=== PATIENT | male | born 1990 | race Hispanic/Latino ===

== ENCOUNTER 2025-03-30 14:17 | Emergency (ER) | payer OTHER ==
[~2025-03-30] VITALS: Ht 198.1 cm; Wt 113.4 kg
[2025-03-30] MEDS: CYCLOBENZAPRINE HCL 10 MG TABLET PO ONE (14:36)
[2025-03-30] MEDS: acetaMINOPHEN 500 MG TABLET PO ONE (14:37)
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
[2025-03-30 16:34] VITALS: BP 115/76; PULSE 88; RESP 16; TEMP 98.9; O2SAT 100
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
[2025-03-30] MEDS ORDERED: IBUP-2070 PO (17:21)
[2025-03-30] MEDS ORDERED: CYCL10TA16 PO (17:21)
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
== END 2025-03-30 17:29 | disposition home or self-care (01) ==
LOC: EDH 14:17
DX: S16.1XXA Strain of muscle, fascia and tendon at neck level, initial encounter (principal); M54.50 Low back pain, unspecified; V53.5XXA Driver of pick-up truck or van injured in collision with car, pick-up truck or van in traffic accident, initial encounter; Y93.I9 Activity, other involving external motion; Y92.488 Other paved roadways as the place of occurrence of the external cause; Y99.8 Other external cause status
CPT/HCPCS: 72040; 72100; 99284